=== PATIENT | male | born 1950 | race Caucasian/White ===

== ENCOUNTER 2020-04-11 18:17 | Inpatient (IN) ==
[2020-04-11] MEDS ORDERED: Nitroglycerin 0.4 MG TAB.SUBL SL PRN (18:32)
[2020-04-11] MEDS: LIRAGLUTIDE SQ SCH (20:13)
[2020-04-11] MEDS: *HR* OxyCODONE Immed Rel 5 MG TABLET PO PRN (20:13)
[2020-04-11] MEDS: INSULIN DEGLUDEC SQ SCH (20:13)
[2020-04-11] MEDS: QUEtiapine Fumarate 100 MG TABLET PO SCH (20:13)
[2020-04-11] MEDS ORDERED: carvediloL 6.25 MG TABLET PO SCH (21:00)
[2020-04-11] MEDS ORDERED: *HR* Dextrose 50 % in Water (Vial) 50 ML VIAL IVP PRN (21:24)
[2020-04-11] MEDS ORDERED: Dextrose Gel 15 GM/37.5 ML TUBE PO PRN ×2 (21:24)
[2020-04-11] MEDS ORDERED: D5% in Water 1,000 ML IVC PRN (21:24)
[2020-04-11] MEDS: Budesonide/Formoterol 160/4.5 1 PUFF INH IH SCH (21:39)
[2020-04-11] MEDS: Insulin LISPRO 300 UNITS/3 ML VIAL SUBQ SCH (21:46)
[2020-04-11] MEDS: Ondansetron ODT 4 MG TAB.RAPDIS SL PRN (23:28)
[2020-04-12] MEDS: *HR* OxyCODONE Immed Rel 5 MG TABLET PO PRN ×3 (04:18→21:21)
[2020-04-12 07:18] LABS: Basophils % 0.4 %; Eosinophils % 0.1 %; Hematocrit 35.6 % (37.5-50.1); Hemoglobin 11.9 g/dL (12.9-16.9); Immature Granulocytes % 0.7 % (0-4); Lymphocytes # 1.6 K/mcL (0.6-4.6); Lymphocytes % 15.6 %; Mean Corpuscular HGB Conc 33.4 g/dL (31.6-35.5); Mean Corpuscular Hemoglobin 32.7 pg (28.0-33.3); Mean Corpuscular Volume 97.8 fL (83.0-100.0); Mean Platelet Volume 9.7 fL (9.4-12.4); Monocytes % 10.1 %; Neutrophils # 7.4 K/mcL (1.6-8.9); Platelet Count 247 K/mcL (140-400); Red Blood Count 3.64 M/mcL (4.19-5.50); Red Cell Distribution Width 12.7 % (11.5-14.5); Segmented Neutrophils % 73.1 %; White Blood Count 10.2 K/mcL (4.3-11.1)
[2020-04-12 07:22] LABS: INR 1.8; Prothrombin Time 20.5 Seconds (9.4-12.1)
[2020-04-12 07:24] LABS: Activated Partial Thrombo Time 29.7 Seconds (26.0-36.0)
[2020-04-12 07:33] LABS: eGFR For African Americans > 60 (> 60); eGFR For Non-African Americans > 60 (> 60)
[2020-04-12] MEDS: Budesonide/Formoterol 160/4.5 1 PUFF INH IH SCH ×2 (08:04→21:34)
[2020-04-12] MEDS: lisinopriL 5 MG TABLET PO SCH (08:24)
[2020-04-12] MEDS: carvediloL 6.25 MG TABLET PO SCH ×2 (08:25→18:59)
[2020-04-12] MEDS: DilTIAZem CD (24hr) 120 MG CAP.ER.24H PO SCH (08:25)
[2020-04-12] MEDS: *HR* Rivaroxaban 15 MG TABLET PO SCH (08:25)
[2020-04-12] MEDS: Cholecalciferol (D-3) 1,000 UNIT (25MCG) TABLET PO SCH (08:25)
[2020-04-12] MEDS: Multivit/Ca/Min/Fe/FA 1 TAB TABLET PO SCH (08:25)
[2020-04-12] MEDS: Furosemide 40 MG TABLET PO SCH (08:25)
[2020-04-12] MEDS: predniSONE 20 MG TABLET PO SCH (08:25)
[2020-04-12] MEDS: Insulin LISPRO 300 UNITS/3 ML VIAL SUBQ SCH ×4 (08:28→21:21)
[2020-04-12] MEDS: QUEtiapine Fumarate 100 MG TABLET PO SCH (21:20)
[2020-04-12] MEDS: INSULIN DEGLUDEC SQ SCH (21:22)
[2020-04-12] MEDS: LIRAGLUTIDE SQ SCH (21:22)
[2020-04-13] MEDS: *HR* OxyCODONE Immed Rel 5 MG TABLET PO PRN ×3 (04:56→18:37)
[2020-04-13] MEDS: *HR* Rivaroxaban 15 MG TABLET PO SCH (08:12)
[2020-04-13] MEDS: Cholecalciferol (D-3) 1,000 UNIT (25MCG) TABLET PO SCH (08:12)
[2020-04-13] MEDS: DilTIAZem CD (24hr) 120 MG CAP.ER.24H PO SCH (08:12)
[2020-04-13] MEDS: lisinopriL 5 MG TABLET PO SCH (08:12)
[2020-04-13] MEDS: carvediloL 6.25 MG TABLET PO SCH ×2 (08:12→16:27)
[2020-04-13] MEDS: Multivit/Ca/Min/Fe/FA 1 TAB TABLET PO SCH (08:13)
[2020-04-13] MEDS: predniSONE 20 MG TABLET PO SCH (08:13)
[2020-04-13] MEDS: Furosemide 40 MG TABLET PO SCH (08:13)
[2020-04-13] MEDS: Insulin LISPRO 300 UNITS/3 ML VIAL SUBQ SCH ×4 (08:16→21:18)
[2020-04-13] MEDS: Budesonide/Formoterol 160/4.5 1 PUFF INH IH SCH ×2 (10:25→21:08)
[2020-04-13] MEDS: Sennosides/Docusate Sodium TABLET PO SCH ×2 (16:27→22:48)
[2020-04-13] MEDS: QUEtiapine Fumarate 100 MG TABLET PO SCH (21:18)
[2020-04-13] MEDS: LIRAGLUTIDE SQ SCH (22:48)
[2020-04-13] MEDS: INSULIN DEGLUDEC SQ SCH (22:48)
[2020-04-14] MEDS: *HR* OxyCODONE Immed Rel 5 MG TABLET PO PRN ×2 (01:04→09:41)
[2020-04-14] MEDS: Insulin LISPRO 300 UNITS/3 ML VIAL SUBQ SCH ×4 (09:41→20:16)
[2020-04-14] MEDS: DilTIAZem CD (24hr) 120 MG CAP.ER.24H PO SCH (09:42)
[2020-04-14] MEDS: lisinopriL 5 MG TABLET PO SCH (09:43)
[2020-04-14] MEDS: Sennosides/Docusate Sodium TABLET PO SCH ×2 (09:43→20:24)
[2020-04-14] MEDS: predniSONE 20 MG TABLET PO SCH (09:43)
[2020-04-14] MEDS: Cholecalciferol (D-3) 1,000 UNIT (25MCG) TABLET PO SCH (09:43)
[2020-04-14] MEDS: Furosemide 40 MG TABLET PO SCH (09:43)
[2020-04-14] MEDS: carvediloL 6.25 MG TABLET PO SCH ×2 (09:43→17:42)
[2020-04-14] MEDS: Multivit/Ca/Min/Fe/FA 1 TAB TABLET PO SCH (09:43)
[2020-04-14] MEDS: *HR* Rivaroxaban 15 MG TABLET PO SCH (09:43)
[2020-04-14] MEDS: Budesonide/Formoterol 160/4.5 1 PUFF INH IH SCH ×2 (10:48→22:13)
[2020-04-14] MEDS: Ondansetron ODT 4 MG TAB.RAPDIS SL PRN (15:15)
[2020-04-14] MEDS: QUEtiapine Fumarate 100 MG TABLET PO SCH (20:16)
[2020-04-14] MEDS: LIRAGLUTIDE SQ SCH (20:24)
[2020-04-14] MEDS: INSULIN DEGLUDEC SQ SCH (20:24)
[2020-04-15] MEDS: *HR* OxyCODONE Immed Rel 5 MG TABLET PO PRN ×4 (00:14→21:40)
[2020-04-15] MEDS: Furosemide 40 MG TABLET PO SCH (07:51)
[2020-04-15] MEDS: Ondansetron ODT 4 MG TAB.RAPDIS SL PRN (07:51)
[2020-04-15] MEDS: lisinopriL 5 MG TABLET PO SCH (07:51)
[2020-04-15] MEDS: Multivit/Ca/Min/Fe/FA 1 TAB TABLET PO SCH (07:51)
[2020-04-15] MEDS: carvediloL 6.25 MG TABLET PO SCH ×2 (07:51→15:31)
[2020-04-15] MEDS: Cholecalciferol (D-3) 1,000 UNIT (25MCG) TABLET PO SCH (07:51)
[2020-04-15] MEDS: *HR* Rivaroxaban 15 MG TABLET PO SCH (07:51)
[2020-04-15] MEDS: DilTIAZem CD (24hr) 120 MG CAP.ER.24H PO SCH (07:51)
[2020-04-15] MEDS: Sennosides/Docusate Sodium TABLET PO SCH ×2 (07:51→20:27)
[2020-04-15] MEDS: Insulin LISPRO 300 UNITS/3 ML VIAL SUBQ SCH ×4 (07:52→20:24)
[2020-04-15] MEDS: Budesonide/Formoterol 160/4.5 1 PUFF INH IH SCH ×2 (08:03→21:30)
[2020-04-15] MEDS: QUEtiapine Fumarate 100 MG TABLET PO SCH (20:24)
[2020-04-15] MEDS: INSULIN DEGLUDEC SQ SCH (20:27)
[2020-04-15] MEDS: LIRAGLUTIDE SQ SCH (20:27)
[2020-04-16] MEDS: *HR* OxyCODONE Immed Rel 5 MG TABLET PO PRN ×2 (03:29→10:40)
[2020-04-16 06:51] VITALS: BP 109/72
[2020-04-16] MEDS: Budesonide/Formoterol 160/4.5 1 PUFF INH IH SCH (08:10)
[2020-04-16] MEDS: Cholecalciferol (D-3) 1,000 UNIT (25MCG) TABLET PO SCH (08:13)
[2020-04-16] MEDS: carvediloL 6.25 MG TABLET PO SCH (08:13)
[2020-04-16] MEDS: Multivit/Ca/Min/Fe/FA 1 TAB TABLET PO SCH (08:14)
[2020-04-16] MEDS: DilTIAZem CD (24hr) 120 MG CAP.ER.24H PO SCH (08:14)
[2020-04-16] MEDS: lisinopriL 5 MG TABLET PO SCH (08:14)
[2020-04-16] MEDS: Insulin LISPRO 300 UNITS/3 ML VIAL SUBQ SCH (08:14)
[2020-04-16] MEDS: *HR* Rivaroxaban 15 MG TABLET PO SCH (08:15)
[2020-04-16] MEDS: Furosemide 40 MG TABLET PO SCH (08:15)
[2020-04-16] MEDS: Sennosides/Docusate Sodium TABLET PO SCH (08:15)
== END 2020-04-16 11:45 | disposition home health service (06) | DRG 949 ==
LOC: INPPIK 18:33
PROVIDERS: ADMIT Family Medicine; ATTEND Family Medicine